=== PATIENT | male | born 1955 | race Caucasian/White ===

== ENCOUNTER 2016-09-22 13:53 | Emergency (ER) | payer OTHER ==
[~2016-09-22] VITALS: Ht 188 cm; Wt 134.7 kg
[~2016-09-22 13:53] MED LIST: DIOVAN HCT 160/1 TAB PO; IMODIUM2 MG PO; KCL PO; LASIX PO; NIACIN PO; PHENERGAN25 M1 PO; TOPROL XL PO; VYTORIN PO
[2016-09-22 15:32] LABS: CALCIUM SERUM 8.6 mg/dL (8.4-10.2); POTASSIUM 3.9 mmol/L (3.5-5.1)
== END 2016-09-22 15:51 | disposition home or self-care (01) ==
LOC: CED 13:53
PROVIDERS: Emergency Medicine
DX: M25.572 Pain in left ankle and joints of left foot (principal); E11.65 Type 2 diabetes mellitus with hyperglycemia; I10 Essential (primary) hypertension
CPT/HCPCS: 36415; 80048; 82947; 99283